=== PATIENT | female | born 1955 | race Caucasian/White ===

== ENCOUNTER → 2019-11-16 | Outpatient (CLI) | payer OTHER ==
[~2019-11-16] MED LIST: ALBU2.5V NEB; ASPI-496 PO; BENZ200C48 PO; CALC1CAP8 PO; CEPH-368 PO; CETI-158 PO; CHOL2000 PO; DILT360C22 PO; FLUT12AE INH; FLUT12AE2 INH; FLUT15.845 NAS; FLUT16SP24 NS; IRBE1TAB37 PO; METO50TA82 PO; OMEG-14 PO; OMEP20TA62 PO; OXYC-302 PO; POTA10TA11 PO; [UNRECOGNIZED DRUG - OTHER] PO
== END | disposition home or self-care (01) ==
LOC: CFH 08:42
PROVIDERS: ATTEND Internal Medicine Hematology & Oncology
DX: C50.911 Malignant neoplasm of unspecified site of right female breast (principal); J47.9 Bronchiectasis, uncomplicated; J98.4 Other disorders of lung; K76.89 Other specified diseases of liver; R91.1 Solitary pulmonary nodule; K46.9 Unspecified abdominal hernia without obstruction or gangrene
CPT/HCPCS: 71250